=== PATIENT | male | born 1960 | race Caucasian/White ===

== ENCOUNTER 2016-12-07 14:08 | Emergency (ER) | payer BC, OTHER ==
[~2016-12-07] VITALS: Ht 180.3 cm; Wt 65.9 kg
[~2016-12-07 14:08] MED LIST: CYCL-36 PO; NAPR-576 PO; TYLE3 PO
[2016-12-07 14:15] VITALS: BP 133/76; PULSE 88; RESP 16; TEMP 97.9; O2SAT 99
[2016-12-07 14:22] VITALS: BP 133/76; PULSE 86; RESP 12; TEMP 97.9; O2SAT 99
[2016-12-07] MEDS ORDERED: KETOROLAC TROMETHAMINE 60 MG/2 ML (IM) VIAL IM ONE (14:30)
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
[2016-12-07] MEDS ORDERED: NAPR500 PO (16:44)
[2016-12-07] MEDS ORDERED: CYCL1TAB29 PO (16:44)
[2016-12-07 16:57] VITALS: O2SAT 98
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
== END 2016-12-07 17:18 | disposition home or self-care (01) ==
LOC: NEPC 14:08
DX: M54.9 Dorsalgia, unspecified (principal); Z72.0 Tobacco use; V03.90XA Pedestrian on foot injured in collision with car, pick-up truck or van, unspecified whether traffic or nontraffic accident, initial encounter; Y93.01 Activity, walking, marching and hiking; Y92.481 Parking lot as the place of occurrence of the external cause; Y99.8 Other external cause status
CPT/HCPCS: 72040; 72072; 72100; 96372; 99284; J1885

== ENCOUNTER 2017-07-05 08:51 | Emergency (ER) | payer SELFPAY ==
[~2017-07-05 08:51] MED LIST changes: -CYCL-36 PO; +CYCL10TA PO; -NAPR-576 PO; +NAPR500 PO; -TYLE3 PO
[2017-07-05 08:57] VITALS: BP 139/74; PULSE 87; RESP 16; TEMP 98; O2SAT 99
[2017-07-05] MEDS ORDERED: IBUP1TAB7 PO (09:30)
[2017-07-05] MEDS ORDERED: BACT800T5 PO (09:30)
--- NOTE | 2017-07-05 09:31 | PD ---
HPI Chief Complaint: Skin Problem Time Seen by Provider: 09:24 Travel History International Travel<30 days: No Contact w/Intl Traveler<30days: No Traveled to known affect area: No History of Present Illness HPI 56-year-old male presents to the emergency Department with complaint of pain and swelling to the dorsal aspect of his left hand after cutting it on a saw 2 days ago. His medical record was reviewed and his tetanus up-to-date 2013. He denies fever, vomiting. Denies paresthesias, loss of sensation to the affected extremity. Has limited range of motion of the knuckles secondary to pain and swelling. Has not taken any medication or drainage from his to alleviate symptoms. Pain is aggravated with palpation to the area and movement of the fingers. Rates pain 9/10. Describes it as a throbbing, aching, burning sensation. No known allergies. No primary care provider. Has no other medical complaints. No other modifying factors or associated signs and symptoms. PFSH Past Medical History Hx Anticoagulant Therapy: No Asthma: No Anxiety: No Depression: No Heart Rhythm Problems: No Cardiac Catheterization: No Cardiovascular Problems: No High Cholesterol: No Chemotherapy: No Chest Pain: Yes Congestive Heart Failure: No COPD: No Cerebrovascular Accident: No Diabetes: No Diminished Hearing: No Gastrointestinal Disorders: Yes GERD: No Genitourinary: Yes Hepatitis: No Hiatal Hernia: No Hypertension: No Kidney Stones: Yes Musculoskeletal: Yes Neurologic: No Psychiatric: No Respiratory: No Migraines: Yes Myocardial Infarction: No Renal Failure: No Seizures: No Sleep Apnea: No Ulcer: Yes (resolved at this time) Tetanus Vaccination: < 5 Years Past Surgical History Abdominal Surgery: Yes (appendicitis) Appendectomy: Yes Cholecystectomy: No Coronary Artery Bypass Graft: No Other Surgery: Yes Social History Alcohol Use: No Tobacco Use: No Substance Use: No Allergies-Medications (Allergen,Severity, Reaction): Coded Allergies: No Known Allergies (Verified Adverse Reaction, Unknown, 07/05/17) Reported Meds & Prescriptions Reported Meds & Active Scripts Active Bactrim DS (Sulfamethoxazole-Trimethoprim) 800-160 Mg Tab 1 Tab PO BID 10 Days Ibuprofen 800 Mg Tab 800 Mg PO Q6HR PRN Review of Systems Except as stated in HPI: all other systems reviewed are Neg Physical Exam Narrative GENERAL: Well-nourished, well-developed male patient, in no acute distress; disheveled; afebrile, nontoxic-appearing SKIN: Warm and dry. Dorsal aspect of left hand with minimal edema and warmth to touch; very minimal erythema. A scabbed cut, approximately 1 cm, is noted to the dorsal aspect of the left hand between the second and third fingers; cut is without drainage. No lymphangitis. Left upper extremity is supple and non- tense with 2+ radial pulses sensory intact. HEAD: Atraumatic. Normocephalic. EYES: Pupils equal and round. No scleral icterus. No injection or drainage. ENT: Mucosa pink and moist. Airway patent. NECK: Trachea midline. CARDIOVASCULAR: Regular rate. RESPIRATORY: No accessory muscle use. GASTROINTESTINAL: Flat. MUSCULOSKELETAL: No obvious deformities. No clubbing. No cyanosis. No edema. NEUROLOGICAL: Awake and alert. Oriented 3. No obvious cranial nerve deficits. Motor grossly within normal limits. Normal speech. PSYCHIATRIC: Appropriate mood and affect; insight and judgment normal. Data Data Last Documented VS Vital Signs Date Time Temp Pulse Resp B/P (MAP) Pulse Ox O2 Delivery O2 Flow Rate FiO2 07/05/17 08:57 98.0 87 16 139/74 (95) 99 Orders Orders Ed Discharge Order (07/05/17 09:32) [facility]DM Medical Decision Making Medical Screen Exam Complete: Yes Emergency Medical Condition: Yes Medical Record Reviewed: Yes Differential Diagnosis Cellulitis of left hand, infected wound, medical clearance Narrative Course 56-year-old male with an infected wound and cellulitis of the dorsal aspect of his left hand. No signs of septic joints. Patient is afebrile and nontoxic- appearing. Denies fever, vomiting. Up-to-date on tetanus vaccination. Bactrim and ibuprofen prescribed for home. Instructed patient to follow up with primary care provider. Patient verbalizes understanding and agreement with treatment plan. Patient is medically cleared and stable for discharge. Discussed reasons to return to the emergency department. Patient agrees with treatment plan. The patients vital signs are stable and the patient is stable for outpatient follow-up and treatment. Patient discharged home, stable and in no acute distress. Diagnosis Primary Impression: Cellulitis of left hand Additional Impression: Infected wound Referrals: [facility] Primary Care Physician Patient Instructions: Cellulitis (ED), General Instructions Additional Instructions: Complete full course of antibiotics Warm compresses to the affected area Keep area clean and dry Ibuprofen or Tylenol as directed and as needed for pain and inflammation Follow-up with primary care provider Return to emergency department immediately with worsening of symptoms Med/Other Pt SpecificInfo: Prescription(s) given Scripts Sulfamethoxazole-Trimethoprim (Bactrim DS) 800-160 Mg Tab 1 TAB PO BID for Infection for 10 Days, #20 TAB 0 Refills Prov: Heidi Brenner 07/05/17 Ibuprofen (Ibuprofen) 800 Mg Tab 800 MG PO Q6HR Y for PAIN, #30 TAB 0 Refills Prov: Heidi Brenner 07/05/17 Disposition: 01 DISCHARGE HOME Condition: Stable Heidi Brenner Jul 05, 2017 09:31
== END 2017-07-05 09:53 | disposition home or self-care (01) ==
LOC: NEPD 08:51
DX: L03.114 Cellulitis of left upper limb (principal); Z87.442 Personal history of urinary calculi
CPT/HCPCS: 99283